=== PATIENT | male | born 1950 | race Caucasian/White ===

== ENCOUNTER 2022-08-04 08:41 | Outpatient (CLI) | payer MEDICARE ==
--- NOTE | 2022-08-04 17:21 | Ultrasound Report ---
PROCEDURE: Aorta Screening INDICATIONS: AAA SCREENING TECHNIQUE: Real time scanning was performed of the aorta and iliac arteries, with image documentatio n. COMPARISON: None. FINDINGS: Aorta: Proximal aortic diameter measures 2.5 x 2.6 cm. Mid-aorta measures 2.4 x 2.4 cm. Distal aor tic diameter is 2.2 x 2.2 cm. Calcified plaque mid to distal aorta. Iliac arteries: Right common iliac artery measures 1.4 x 1.8 cm. Left common iliac artery measures 2.4 x 2.3 cm. Calcified plaques in the iliac arteries bilaterally. IMPRESSION: 1. No abdominal aortic aneurysm. 2. Abdominal aortic ectasia. Recommend a follow-up ultrasound in 5 years. 3. Atherosclerotic calcifications. 4. Left common iliac artery ectasia. Reviewed by: Sathya Goodwin MD on 08/04/2022 5:20 PM PDT Approved by: Sathya Goodwin MD on 08/04/2022 5:20 PM PDT Station ID: [id number]
--- NOTE | 2022-08-06 10:26 | CT Report ---
PROCEDURE: Low Dose Lung Cancer Screen INDICATIONS: FORMER SMOKER TECHNIQUE: A CT scan of the chest was performed. Intravenous contrast media was not administered. Images were re corded and evaluated at appropriate window settings. Reformats: axial MIP of the chest, coronal and s agittal. For radiation dose reduction, the following was used: automated exposure control, adjustment of mA and/or kV according to patient size. COMPARISON: None. FINDINGS: Image quality: Excellent. Lungs and pleura: There are small lung nodules. Reference nodules are listed in following: Nodule 1: 2 mm; right upper lobe; series 4 image 111. Nodule 2: 2 mm; right middle lobe; series 4 image 197. Nodule 1: 3 mm; right upper lobe; series 4 image 126. No pleural effusions. No pneumothorax. No suspicious pulmonary nodules which require follow up. Mediastinum: Heart size is normal. There is moderate coronary atherosclerosis. No pericardial effusio n. No large vessel abnormality. No mediastinal adenopathy by size criteria. Small hiatal hernia Chest wall and lower neck: Thyroid is unremarkable. No axillary or supraclavicular adenopathy by size . Gynecomastia. Bones: No aggressive osseous abnormality. Upper Abdomen: Unremarkable. IMPRESSION: Lung RADS: 2 - Benign. Recommendation: Continue annual screening in 12 Months with LDCT. Please see body of report for other incidental findings. Reviewed by: Sathya Goodwin MD on 08/06/2022 10:25 AM PDT Approved by: Sathya Goodwin MD on 08/06/2022 10:25 AM PDT Station ID: [id number]
== END 2022-08-04 08:42 | disposition home or self-care (01) ==
LOC: DI 08:41
PROVIDERS: ATTEND Student in an Organized Health Care Education/Training Program
DX: Z12.2 Encounter for screening for malignant neoplasm of respiratory organs (principal); Z13.6 Encounter for screening for cardiovascular disorders; I77.811 Abdominal aortic ectasia; I70.0 Atherosclerosis of aorta; Z87.891 Personal history of nicotine dependence